=== PATIENT | female | born 1950 | race Caucasian/White ===

== ENCOUNTER 2021-05-09 22:16 | Emergency (ER) | payer BC, MEDICARE ==
[~2021-05-09] VITALS: Ht 162.6 cm; Wt 63.6 kg
[2021-05-10] MEDS ORDERED: TETanus/Pertussis (Acell)/Diphther VAC/PF (Tdap-Adult) 0.5ml syringe IMVAC ONE (01:30)
[2021-05-10 03:27] VITALS: BP 143/82
== END 2021-05-10 03:52 | disposition home or self-care (01) ==
LOC: ER 22:17
DX: S61.211A Laceration without foreign body of left index finger without damage to nail, initial encounter (principal); S61.213A Laceration without foreign body of left middle finger without damage to nail, initial encounter; W45.8XXA Other foreign body or object entering through skin, initial encounter; Y93.89 Activity, other specified; Y92.89 Other specified places as the place of occurrence of the external cause; Y99.8 Other external cause status
CPT/HCPCS: 12002; 73130; 90715; 99283